=== PATIENT | male | born 1965 | race Caucasian/White ===

== ENCOUNTER 2018-04-02 05:16 | Inpatient (IN) | payer OTHER ==
[~2018-04-02] VITALS: Ht 188 cm; Wt 84.1 kg
--- NOTE | 2018-04-02 06:27 | ED AMS/SEIZURE/WEAK/DIZZY ---
See Addendum History of Present Illness General Chief Complaint: Seizure Stated Complaint: SEIZURE ACITIVTY AT HOME PER EMS Source: patient, old records, friend Exam Limitations: no limitations Vital Signs & Intake/Output Vital Signs & Intake/Output Vital Signs Date Time Temp Pulse Resp B/P B/P Pulse O2 O2 Flow FiO2 Mean Ox Delivery Rate 04/02 0652 97.8 95 16 104/65 97 Room Air 04/02 0526 98.7 115 16 117/75 94 Room Air Allergies Uncoded Allergies: MSG (UNKNOWN 03/29/13) Triage Note: PT BIBA FROM HOME, FRIEND WOKE UP OUT OF SLEEP AND NOTICED PT CONVULSING IN BED, LASTING APPROX 11 MIN PER EMS. PT ARRIVES AOX3 BUT DOES NOT REMEMBER SEIZURE LIKE ACTIIVY. PT STATES HE QUIT DRINKING COLD TURKEY 8 DAYS AGO. Triage Nurses Notes Reviewed? yes Onset: Just prior to arrival Duration: minute(s):, constant, gone now Timing: recent history Injury Environment: home Severity: severe No Modifying Factors: none HPI: 3.5 days prior to admission patient stopped drinking his normal 2 pints of alcohol daily. Prior to admission his family reports she was awakened by the patient having tonic-clonic movements of his upper and lower extremities unresponsive lasting up to 12 minutes with urine incontinence. Afterwards he was sleeping soundly and when he awoke he was confused. There has been no fever chills nausea vomiting diarrhea abdominal pain chest pain shortness breath headache dysuria rash bleeding noted Past History Travel History Traveled to [place] past 21 day No Medical History Any Pertinent Medical History? see below for history Neurological: NONE EENT: NONE Cardiovascular: hypertension Respiratory: NONE Gastrointestinal: NONE Hepatic: NONE Renal: NONE Musculoskeletal: NONE Psychiatric: alcohol dependence Endocrine: NONE Blood Disorders: NONE Cancer(s): NONE JANITOR SUPERVISOR/Reproductive: NONE Surgical History Surgical History: non-contributory Psychosocial History Who do you live with Spouse What is your primary language Nepali Tobacco Use: Current Daily Use Daily Tobacco Use Amount/Type: => 5 Cigarettes daily ETOH Use: denies use Illicit Drug Use: denies illicit drug use Family History Hx Contributory? No Review of Systems Review of Systems Constitutional: Reports: no symptoms. EENTM: Reports: no symptoms. Respiratory: Reports: no symptoms. Cardiovascular: Reports: no symptoms. GI: Reports: no symptoms. Genitourinary: Reports: no symptoms. Musculoskeletal: Reports: no symptoms. Skin: Reports: no symptoms. Neurological/Psychological: Reports: see HPI, tonic-clonic seizures. Hematologic/Endocrine: Reports: no symptoms. Immunologic/Allergic: Reports: no symptoms. All Other Systems: Reviewed and Negative Physical Exam Physical Exam General Appearance: well developed/nourished, alert, awake, anxious, mild distress Head: atraumatic, normal appearance Eyes: Bilateral: normal appearance, PERRL, EOMI. Ears, Nose, Throat: normal pharynx, normal ENT inspection, edentulous Neck: normal inspection, supple, full range of motion, no midline tenderness Respiratory: normal breath sounds, chest non-tender, no respiratory distress, quiet respiration, lungs clear Cardiovascular: regular rate/rhythm, normal peripheral pulses, norml femoral pulses equa Peripheral Pulses: 4+ carotid (R), 4+ carotid (L) Gastrointestinal: normal bowel sounds, soft, non-tender, no organomegaly Back: normal inspection, normal range of motion Extremities: normal range of motion, no ligament instability Neurologic/Psych: no motor/sensory deficits, awake, alert, oriented x 3, normal mood/affect, gas line servicer II-XII nml as tested Reflexes: 2+: bicep (R), bicep (L). Skin: intact, normal color, warm/dry Lymphatic: no anterior cervical melvi Core Measures ACS in differential dx? No CVA/TIA Diagnosis No Sepsis Present: No Sepsis Focused Exam Completed? No Progress Differential Diagnosis: alcohol intoxication, drug intoxication, electrolyte imbalance, hypoglycemia, seizure disorder, alcohol withdrawal Plan of Care: Orders Procedure Date/time Status CIWA 04/02 0704 Active URINE DRUG SCREEN FOR ER ONLY 04/02 626 Active MAGNESIUM 04/02 626 Complete ETHANOL 04/02 626 Complete COMPREHENSIVE METABOLIC PANEL 04/02 626 Complete CBC WITHOUT DIFFERENTIAL 04/02 626 Active CASE MANAGEMENT CONSULT 04/02 626 Active Current Medications Sig/José Start time Last Medication Dose Stop Time Status Admin Dextrose/Sodium 1,000 ML ONCE ONE 04/02 06 AC 04/02 Chloride 04/02 1309 0654 (D5-Normal Saline) Gabapentin 300 MG Q8 04/02 0624 UNVr 04/02 (Neurontin) 0654 Laboratory Tests 04/02/18 0550: Anion Gap 13, Estimated GFR > 60, BUN/Creatinine Ratio 16.7, Glucose 147 H, Calcium 9.5, Magnesium 1.3 L, Total Bilirubin 0.8, AST 187 H, ALT 181 H, Alkaline Phosphatase 78, Total Protein 6.5, Albumin 4.1, Globulin 2.4, Albumin/ Globulin Ratio 1.7, CBC w Diff Pending, WBC Pending, RBC Pending, Hgb Pending, Hct Pending, MCV Pending, MCH Pending, MCHC Pending, RDW Pending, Plt Count Pending, MPV Pending, Gran % Pending, Lymphocytes % Pending, Monocytes % Pending , Eosinophils % Pending, Basophils % Pending, Absolute Granulocytes Pending, Absolute Lymphocytes Pending, Absolute Monocytes Pending, Absolute Eosinophils Pending, Absolute Basophils Pending, Serum Alcohol < 10.0 Initial ED EKG: none Hand-Off Endorsed To: Hortencia SCHULER,Forrest Moran Endorsed Time: 0700 Pending: CT, consult (case mgmt), labs Departure Departure Time of Disposition: 0700 Disposition: STILL A PATIENT Condition: Stable Clinical Impression Primary Impression: Alcohol withdrawal seizure Referrals: Luis Daniel SCHULER,Richard Freitas (PCP/Family) Departure Forms: Customer Survey General Discharge Information
[2018-04-02 06:49] LABS: ABSOLUTE BASOPHIL COUNT 0 /CUMM (0.0-0.2); ABSOLUTE EOSINOPHIL COUNT 0.1 /CUMM (0.0-0.7); ABSOLUTE GRANULOCYTE CT 2.8 /CUMM (1.4-6.5); ABSOLUTE LYMPH COUNT 1.9 /CUMM (1.2-3.4); ABSOLUTE MONOCYTE COUNT 0.6 /CUMM (0.10-0.60); BASOPHIL % 0.5 % (0.0-2.0); EOSINOPHIL % 1.6 % (0-5); GRANULOCYTE % 52.2 % (42.2-75.2); HEMATOCRIT 39.7 % (42-52); MEAN CORPUSCULAR HGB 34.7 PG (27.0-31.0); MEAN CORPUSCULAR HGB CONC 33.9 G/DL (33.0-37.0); MEAN CORPUSCULAR VOLUME 102.6 FL (80.0-94.0); MEAN PLATELET VOLUME 8.9 FL (7.4-10.4); PLATELET COUNT 153 /CUMM (130-400); RBC DISTRIBUTION WIDTH 15.5 % (11.5-14.5); RED BLOOD CELL CT 3.87 /CUMM (4.70-6.10)
--- NOTE | 2018-04-02 06:58 | CT SCAN REPORT ---
EXAMINATION: CT HEAD WITHOUT CONTRAST CLINICAL INFORMATION: Seizure. Alcohol withdrawal. COMPARISON: June 03, 2008. TECHNIQUE: Contiguous axial images of the brain were obtained without IV contrast. DLP: 635 mGy-cm. FINDINGS: There are no pathologic extra-axial fluid collections. The lateral, third, fourth ventricles are mildly prominent, though concordant with the appearance of the sulci. There is no evidence for acute intraparenchymal hemorrhage or infarct. There is neither mass nor mass effect. There is no shift of midline structures. The paranasal sinuses and mastoid air cells are clear. There are no osseous lesions. IMPRESSION: No evidence for acute intracranial injury. Mild age discordant prominence to the lateral ventricles. This is nonspecific, though could be related to early atrophy related to the reported history of alcohol abuse.
[2018-04-02 07:08] LABS: WHITE BLOOD CELL COUNT 5.3 /CUMM (4.8-10.8)
[2018-04-02 07:30] VITALS: BP 110/70
[2018-04-02 09:46] VITALS: BP 106/74
[2018-04-02 11:29] VITALS: BP 110/73
--- NOTE | 2018-04-02 12:23 | History & Physical ---
Ashley Jennings MD 04/02/18 1222: General Information and HPI MD Statement: I have seen and personally examined KAYLIN GREGORY and documented this H&P. The patient is a 52 year old M who presented with a patient stated chief complaint of [seizures]. Source of Information: patient, family, old records, EMS Exam Limitations: no limitations History of Present Illness: Patient is a 52-year-old actively smoking male with past medical history significant for alcohol abuse, remote hypertension presented to [facility] after found to be having seizures early in the morning. Patient lives alone in [place] and came to stay with his for a few days. He has been with her since and remained off alcohol. He started experiencing shaking episodes early in the morning witnessed by his . He continued to have seizure episode for around 12 minutes, associated with urinary incontinence. He is confused after the event for about an hour. He had another episode for around few minutes and then fell sleep. She called 911 and by the time EMS arrived patient is very confused, able to answer questions but very inappropriate. He was brought to the ER subsequently. Patient had significant history of alcohol consumption, he was off alcohol for around 2 and half years and started drinking around an year ago. He is actually scheduled to go for rehabilitation for 8-10 months which is free in [place] ( [employer] in [place]) for which he is traveling on April 11. Smokes 1.5 packs every day. He used to be hypertensive and he had a history of hypertension and used to be on labetalol however stopped after having an episode of hypotension and remained normotensive. 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 Home Who Do You Live With? self Services at Home: None Smoking Status: Current Everyday Smoker ETOH Use: denies use Illicit Drug Use: denies illicit drug use Review of Systems Review of Systems Constitutional: Reports: see HPI. Exam & Diagnostic Data Last 24 Hrs of Vital Signs/I&O Vital Signs Date Time Temp Pulse Resp B/P B/P Pulse O2 O2 Flow FiO2 Mean Ox Delivery Rate 04/02 1129 97.6 86 16 110/73 04/02 1128 97.6 86 16 110/73 95 Room Air 04/02 0951 98.2 87 20 106/74 95 Room Air 04/02 0946 98.2 87 20 106/74 04/02 0730 98.0 86 20 110/70 04/02 0730 98.0 86 20 110/70 95 Room Air 04/02 0652 97.8 95 16 104/65 97 Room Air 04/02 0526 98.7 115 16 117/75 94 Room Air Intake & Output 04/02 1600 04/02 0800 04/02 0000 Intake Total Output Total 300 Balance -300 Output, Urine 300 Patient 81.647 kg Weight Weight Reported by Patient Measurement Method Physical Exam General Appearance Alert, Oriented X3, Cooperative, No Acute Distress Skin No Rashes, No Breakdown Skin Temp/Moisture Exam: Warm/Dry HEENT Atraumatic, PERRLA, EOMI, no teeth Neck Supple, No JVD Cardiovascular Regular Rate, Normal S1, Normal S2 Lungs Clear to Auscultation, Normal Air Movement Abdomen Normal Bowel Sounds, Soft, No Tenderness, hepatomegaly presente - nontender to palpation Neurological Normal Speech, Strength at 5/5 X4 Ext Extremities No Clubbing, No Cyanosis, No Edema Vascular Normal Pulses Last 24 Hrs of Labs/New: Laboratory Tests 04/02/18 1105: Urine Opiates Screen < 100, Methadone Screen < 40, Barbiturate Screen < 60, Ur Phencyclidine Scrn < 6.00, Amphetamines Screen < 100, U Benzodiazepines Scrn < 85, Urine Cocaine Screen < 50, Urine Cannabis Screen < 5.00, Urine Osmolality 432, Ur Random Creatinine 228.1, Ur Random Sodium 38, Ur Random Potassium 35.9, Fraction Sodium Excret 0.1 04/02/18 0550: Anion Gap 13, Estimated GFR > 60, BUN/Creatinine Ratio 16.7, Glucose 147 H, Serum Osmolality 287, Calcium 9.5, Magnesium 1.3 L, Total Bilirubin 0.8, AST 187 H, ALT 181 H, Alkaline Phosphatase 78, Total Protein 6.5, Albumin 4.1, Globulin 2.4, Albumin/Globulin Ratio 1.7, CBC w Diff NO MAN DIFF REQ, RBC 3.87 L, MCV 102.6 H, MCH 34.7 H, MCHC 33.9, RDW 15.5 H, MPV 8.9, Gran % 52.2, Lymphocytes % 35.1, Monocytes % 10.6 H, Eosinophils % 1.6, Basophils % 0.5, Absolute Granulocytes 2.8, Absolute Lymphocytes 1.9, Absolute Monocytes 0.6, Absolute Eosinophils 0.1, Absolute Basophils 0, Serum Alcohol < 10.0 Assessment/Plan Assessment: Patient is a 52-year-old male with significant history of alcohol consumption has been on and off, restarted around an yr ago and consuming around 2 pints of vodka daily, active smoking presented with seizures are being off alcohol from past . Seizure was wittnessed by , associated with urinary incontinence and postictal confusion. VS at presentation are afebrile, HR 115, saturating well on RA. By the time of my interview he is alert, oriented X3. Physical exam significant for hepatomegaly, no teeth, wheezing throughtout the lung loaiza. Labs did show leukopenia, throbocytopenia, low Na 133, K 3.4, AST/ ALT 187/181, serum alcohol <10. Evaluation Likely alcohol related. I am concerned about the extent of liver injury given hepatomegaly. Given significant wheezing - rule out pneumonitis with a CXR. Plan Admit to general medicine floor Alcohol withdrawl seizures * CIWA protocol * ativan per CIWA * banana bag * Seizure precautions. * Patient scheduled for a rehab facility and wants to take care of him prior to placement. * If continues to have seizures we will consult neurology Hepatomegaly with abnormal LFTs likely related to alcohol. * trend LFT's * RUQ ultrasound in am * NPO for ultrasound Thrombocytopenia Platelets of 154 * likely alcohol related * Trend for now Pneumonitis wheezing present. smokes 1.5 pack per day. * cxr * TRC DVT prophylaxis SC heparin Code status Full Code As Ranked By This Provider Problem List: 1. Alcohol withdrawal seizure Core Measures/Misc (04/03) Acute Coronary Syndrome ACS Diagnosis: No Congestive Heart Failure Congestive Heart Failure Diagnosis No Cerebrovascular Accident CVA/TIA Diagnosis: No VTE (View Protocol) VTE Risk Factors Acute Medical Illness No Mechanical VTE Prophylaxis d/t N/A MechProphylax Ordered No VTE Pharm Prophylaxis d/t NA PharmProphylax ordered Sepsis (View protocol) Sepsis Present: No If YES complete Sepsis Event Note If YES complete Sepsis Event Note Resident Review Statement Resident Statement: examined this patient, discussed with supervisor international reservations, agreed with supervisor international reservations, discussed with family, reviewed EMR data (avail), discussed with nursing , discussed with case mgmt, reviewed images, amended to note Other Findings: as above Bull Montague 04/02/18 1420: Core Measures/Misc (04/03) Sepsis (View protocol) If YES complete Sepsis Event Note If YES complete Sepsis Event Note Attending MD Review Statement Attending Statement Attending MD Statement: examined this patient, discuss w/resident/PA/POWER WOOD SAWYER, agreed w/resident/PA/POWER WOOD SAWYER, discussed with family, reviewed EMR data (avail), discussed with nursing, discussed with case mgmt, reviewed images, amended to note Attending Assessment/Plan: 52 o/m admitted here for aclohol withdrawal seizures. He will be started on CIWA protocol with ativan taper. Also give ativan prn for seozure control. If not improves then consider neurology consult. Pateint mild hypokalemia which needs to be replaced and recheck. Add magnesium levels. Thiamine/folic acid. SW consult. GI/DVT prophylaxis full code
[2018-04-02 13:31] VITALS: BP 120/93
[2018-04-02 14:22] VITALS: BP 116/74
--- NOTE | 2018-04-02 22:38 | RADIOLOGY REPORT ---
EXAMINATION: XR CHEST CLINICAL INFORMATION: Wheezing. COMPARISON: 12/25/2007 TECHNIQUE: 2 views of the chest were obtained. FINDINGS: No significant abnormality is noted involving the heart, lungs, mediastinum, bony thorax or soft tissues. Mild degenerative changes present in the shoulders. IMPRESSION: No acute intrathoracic disease.
[2018-04-02 22:53] VITALS: BP 115/72
[2018-04-03] VITALS (10 sets, daily range): BP systolic 112–124; BP diastolic 51–88
--- NOTE | 2018-04-03 07:26 | PN- Housestaff ---
Linnette Sexton 04/03/18 0726: Subjective Follow-up For: Alcohol detoxification Subjective: Patient was seen and examined at bedside. The patient has no complaints at present. CIWA was 0 this morning. Patient denies fever, headache, tremors, confusion. Review of Systems Constitutional: Reports: see HPI. Objective Last 24 Hrs of Vital Signs/I&O Vital Signs Date Time Temp Pulse Resp B/P B/P Pulse O2 O2 Flow FiO2 Mean Ox Delivery Rate 04/03 1430 98.0 107 20 115/88 97 Room Air 04/03 1400 98.0 107 20 115/88 04/03 1200 98.1 81 18 112/79 04/03 1109 95 Room Air 04/03 1000 98.1 81 20 112/79 04/03 0800 98.1 81 20 112/79 04/03 0703 98.1 81 20 112/79 95 Room Air 04/03 0000 Room Air 04/02 2253 97.9 89 20 115/72 93 Room Air 04/02 2106 94 Room Air Room Air 04/02 2029 Room Air Room Air Intake & Output 04/03 1600 04/03 0800 04/03 0000 Intake Total 400 500 Output Total Balance 400 500 Intake, IV 500 Intake, Oral 400 Physical Exam General Appearance: Alert, Oriented X3, Cooperative, No Acute Distress Cardiovascular: Regular Rate, Normal S1, Normal S2, No Murmurs Lungs: Clear to Auscultation, Normal Air Movement Abdomen: Normal Bowel Sounds, Soft, No Tenderness Extremities: No Edema, Normal Pulses Assessment/Plan Assessment: Patient is a 52-year-old male with significant history of alcohol consumption has been on and off, restarted around an yr ago and consuming around 2 pints of vodka daily, active smoking presented with seizures are being off alcohol from past . Seizure was wittnessed by , associated with urinary incontinence and postictal confusion. Alcohol withdrawl seizures -CIWA protocol -ativan per CIWA -banana bag -Seizure precautions. -Patient scheduled for a rehab facility and ex wants to take care of him prior to placement. -If continues to have seizures we will consult neurology Hepatomegaly with abnormal LFTs -likely related to alcohol. -trend LFT's -RUQ ultrasound positive for hepatomegaly with hepatic steatosis Thrombocytopenia -Platelets of 154 -would trend Pneumonitis -wheezing present. smokes 1.5 pack per day. -cxr normal -TRC DVT prophylaxis SC heparin Code status Full Code Problem List: 1. Alcohol withdrawal seizure 2. Transaminitis Pain Ratin Pain Location: none Pain Goal: Remain pain free Pain Plan: none Tomorrow's Labs & Rationales: cbc, bep and hepatic function tests Bull Montague 04/03/18 1114: Attending MD Review Statement Attending Statement Attending MD Statement: examined this patient, discuss w/resident/PA/HAND III CUTTER, agreed w/resident/PA/HAND III CUTTER, discussed with family, reviewed EMR data (avail), discussed with nursing, discussed with case mgmt, reviewed images, amended to note Attending Assessment/Plan: 52 o/m admitted here for aclohol withdrawal seizures. Continue CIWA protocol with ativan taper. Also give ativan prn for seozure control. If not improves then consider neurology consult.Thiamine/folic acid. Transaminitis 2/2 alcohol abuse. Send hepatitis profile and RUQ USG. Has arrangements made for his alcohol detox as outpatient. refused to see IOP here. GI/DVT prophylaxis full code
[2018-04-03 08:52] LABS: PT 10.1 SEC (9.4-12.5)
--- NOTE | 2018-04-03 13:43 | ULTRASOUND REPORT ---
EXAMINATION: US ABDOMEN LIMITED CLINICAL INFORMATION: Active alcohol consumption, hepatomegaly, transaminitis.. COMPARISON: None TECHNIQUE: Real-time imaging of the right upper quadrant abdominal viscera. FINDINGS: PANCREAS: The visualized portions of the pancreas are unremarkable. LIVER: The liver measures 21.5 cm in maximal dimension. The liver demonstrates normal contour and echogenicity. No focal lesion or intrahepatic biliary duct dilatation. GALLBLADDER: The gallbladder is physiologically distended without evidence of stones, sludge, wall thickening or pericholecystic fluid. Small, 2 mm polyp. COMMON BILE DUCT: Normal in caliber measuring 0.5 cm in diameter. RIGHT KIDNEY: No hydronephrosis. No renal calculi or focal parenchymal lesions. The kidney measures 11.6 cm in maximum dimension. FREE FLUID: None. IMPRESSION: The liver is enlarged with diffusely increased echogenicity which may reflect underlying hepatic steatosis versus hepatocellular disease. No focal hepatic lesions. 2 mm gallbladder polyp.
[2018-04-04] VITALS (14 sets, daily range): BP systolic 120–140; BP diastolic 70–102
--- NOTE | 2018-04-04 07:28 | PN- Housestaff ---
See Addendum Subjective Follow-up For: Alcohol detoxification Transaminitis Subjective: Patient was seen and examined at bedside. He has no complaints. His CIWA score has been zero. He is currently on Ativan taper. Review of Systems Constitutional: Reports: see HPI. Objective Last 24 Hrs of Vital Signs/I&O Vital Signs Date Time Temp Pulse Resp B/P B/P Pulse O2 O2 Flow FiO2 Mean Ox Delivery Rate 04/04 1000 98.6 96 18 120/70 04/04 0800 98.6 96 18 120/70 04/04 0614 98.6 96 19 120/70 94 / 0138 97.6 87 17 132/87 93 04/03 2204 98.1 100 17 124/76 97 Room Air 04/03 1843 98.1 100 20 119/51 96 Room Air 04/03 1840 94 Room Air 04/03 1800 98.0 107 20 115/88 04/03 1600 Room Air 04/03 1600 98.0 107 20 115/88 04/03 1556 92 04/03 1430 98.0 107 20 115/88 97 Room Air 04/03 1400 98.0 107 20 115/88 04/03 1200 98.1 81 18 112/79 04/03 1109 95 Room Air Intake & Output 04/04 1600 04/04 0800 04/04 0000 Intake Total 510 210 Output Total Balance 510 210 Intake, IV 10 10 Intake, Oral 500 200 Physical Exam General Appearance: Alert, Oriented X3, Cooperative, No Acute Distress Neck: Supple Cardiovascular: Regular Rate, Normal S1, Normal S2, No Murmurs Lungs: Clear to Auscultation Abdomen: Normal Bowel Sounds, Soft, Hepatomegaly Extremities: No Edema, Normal Pulses Assessment/Plan Assessment: Patient is a 52-year-old male with significant history of alcohol consumption has been on and off, restarted around an yr ago and consuming around 2 pints of vodka daily, active smoking is admitted to the [facility] service after he had a seizure presumably from alcohol withdrawal. His last drink was Tuesday. Seizure was wittnessed by , associated with urinary incontinence and postictal confusion. Vitals are stable. Labs are positive for mild transaminitis. Liver ultrasound revealed hepatomegaly with hepatic steatosis. Problems: 1. Alcohol withdrawal 2. Hepatomegaly with Transaminitis 3. Thrombocytopenia 4. URI 1. Alcohol withdrawal seizures -CIWA protocol. CIWA score has been consistently zero. -Ativan per CIWA -Seizure precautions. -Patient scheduled for a rehab facility and ex wants to take care of him prior to placement. 2. Hepatomegaly with Transaminitis -Likely secondary to alcohol -Trend LFTs -RUQ ultrasound positive for hepatomegaly with hepatic steatosis -Patient would follow GI outpatient 3. Thrombocytopenia -Platelets of 154 -would trend 4. URI -wheezing present. smokes 1.5 pack per day. -cxr normal -TRC DVT prophylaxis SC heparin Code status Full Code Problem List: 1. Alcohol withdrawal seizure 2. Transaminitis Pain Ratin Pain Location: none Pain Goal: Remain pain free Pain Plan: none Tomorrow's Labs & Rationales: cbc
[2018-04-04 10:49] LABS: ABSOLUTE BASOPHIL COUNT 0 /CUMM (0.0-0.2); ABSOLUTE EOSINOPHIL COUNT 0.1 /CUMM (0.0-0.7); ABSOLUTE GRANULOCYTE CT 3.7 /CUMM (1.4-6.5); ABSOLUTE LYMPH COUNT 2.1 /CUMM (1.2-3.4); ABSOLUTE MONOCYTE COUNT 0.6 /CUMM (0.10-0.60); BASOPHIL % 0.5 % (0.0-2.0); EOSINOPHIL % 2.2 % (0-5); GRANULOCYTE % 56.3 % (42.2-75.2); HEMATOCRIT 37.5 % (42-52); MEAN CORPUSCULAR HGB 35.2 PG (27.0-31.0); MEAN CORPUSCULAR HGB CONC 33.5 G/DL (33.0-37.0); MEAN PLATELET VOLUME 8.4 FL (7.4-10.4); PLATELET COUNT 182 /CUMM (130-400); RBC DISTRIBUTION WIDTH 16.9 % (11.5-14.5); RED BLOOD CELL CT 3.57 /CUMM (4.70-6.10); WHITE BLOOD CELL COUNT 6.6 /CUMM (4.8-10.8)
--- NOTE | 2018-04-04 16:23 | Patient Discharge Instructions ---
Discharge Instructions General Discharge Information You were seen/treated for: Alcohol withdrawal seizures Special Instructions: Please inform your PCP about your admission to [facility] Please start taking health supplements according to instructions given Acute Coronary Syndrome Inclusion Criteria At DC or during hospital stay patient has or had the following: ACS DIAGNOSIS No Discharge Core Measures Meds if any: Prescribed or Continued at Discharge Meds if any: NOT Prescribed or Continued at Discharge Congestive Heart Failure Inclusion Criteria At DC or during hospital stay patient has or had the following: CHF DIAGNOSIS No Discharge Core Measures Meds if any: Prescribed or Continued at Discharge Meds if any: NOT Prescribed or Continued at Discharge Cerebrovascular accident Inclusion Criteria At DC or during hospital stay patient has or had the following: CVA/TIA Diagnosis No Discharge Core Measures Meds if any: Prescribed or Continued at Discharge Meds if any: NOT Prescribed or Continued at Discharge Venous thromboembolism Inclusion Criteria VTE Diagnosis No VTE Type NONE VTE Confirmed by (Test) NONE Discharge Core Measures - Per Current guidelines, there needs to be overlap - treatment for the first 5 days of Warfarin therapy. - If discharged on Warfarin prior to 5 days of - overlap therapy, the patient will need to be - assessed for post discharge needs including - *Post discharge parental anticoagulation - *Warfarin and/or parental anticoagulation education - *Follow up date to check INR post discharge At least 5 days overlap therapy as Inpatient No Meds if any: Prescribed or Continued at Discharge Note: Overlap Therapy is Warfarin and Anticoagulant Meds if any: NOT Prescribed or Continued at Discharge
[2018-04-04] MEDS ORDERED: FOLIC ACID1 M1 PO (16:25)
[2018-04-04] MEDS ORDERED: DAILY MULTIPLE1 EACH PO (16:25)
[2018-04-05 06:59] VITALS: BP 160/90
--- NOTE | 2018-04-05 07:26 | PN- Housestaff ---
Linnette Sexton 04/05/18 0726: Subjective Follow-up For: Alcohol detoxification Subjective: Patient was seen and examined at bedside. He has no new complaints. His CIWA was zero in the morning. Patient would be discharged home later today. He has been accepted to a rehab facility in [place] for alcohol rehabilitation program. Review of Systems Constitutional: Reports: see HPI. Objective Last 24 Hrs of Vital Signs/I&O Vital Signs Date Time Temp Pulse Resp B/P B/P Pulse O2 O2 Flow FiO2 Mean Ox Delivery Rate 04/05 0934 97 Room Air 04/05 0659 97.5 70 20 160/90 96 04/05 0000 96 Room Air 04/04 2207 83 04/04 2202 99.1 102 20 122/94 97 Room Air 04/04 2200 99.1 83 20 122/94 04/04 2000 97.8 88 20 136/92 04/04 1900 136/92 04/04 1832 96 Room Air 04/04 1828 97.8 88 20 140/102 98 Room Air 04/04 1800 97.8 88 20 140/102 04/04 1600 Room Air 04/04 1600 98.9 81 18 124/92 04/04 1442 98.9 81 18 124/92 97 Room Air 04/04 1400 98.6 96 18 120/70 04/04 1245 94 Room Air 04/04 1200 98.6 96 18 120/70 Intake & Output 04/05 1600 04/05 0800 04/05 0000 Intake Total 480 490 Output Total Balance 480 490 Intake, IV 0 10 Intake, Oral 480 480 Number 0 0 Bowel Movements Physical Exam General Appearance: Alert, Oriented X3, Cooperative, No Acute Distress Neck: Supple Cardiovascular: Regular Rate, Normal S1, Normal S2, No Murmurs Lungs: Clear to Auscultation Abdomen: Normal Bowel Sounds, Soft, No Tenderness Extremities: No Edema, Normal Pulses Assessment/Plan Assessment: Patient is a 52-year-old male with significant history of alcohol consumption has been on and off, restarted around an yr ago and consuming around 2 pints of vodka daily, active smoking is admitted to the [facility] service after he had a seizure presumably from alcohol withdrawal. His last drink was Tuesday. Seizure was wittnessed by , associated with urinary incontinence and postictal confusion. Vitals are stable. Labs are positive for mild transaminitis. Liver ultrasound revealed hepatomegaly with hepatic steatosis. Problems: 1. Alcohol withdrawal 2. Hepatomegaly with Transaminitis 3. Thrombocytopenia 4. URI 1. Alcohol withdrawal seizures -CIWA protocol. CIWA score has been consistently zero. -Ativan per CIWA -Seizure precautions. -Patient scheduled for a rehab facility and ex wants to take care of him prior to placement. 2. Hepatomegaly with Transaminitis -Likely secondary to alcohol -Trend LFTs -RUQ ultrasound positive for hepatomegaly with hepatic steatosis -Patient would follow GI outpatient 3. Thrombocytopenia -Platelets of 154 -would trend 4. URI -wheezing present. smokes 1.5 pack per day. -cxr normal -TRC DVT prophylaxis SC heparin Code status Full Code Problem List: 1. Transaminitis 2. Alcohol withdrawal seizure Pain Ratin Pain Location: none Pain Goal: Remain pain free Pain Plan: none Tomorrow's Labs & Rationales: none ClariBull schilling 04/05/18 1124: Attending MD Review Statement Attending Statement Attending MD Statement: examined this patient, discuss w/resident/PA/CITY DIRECTOR, agreed w/resident/PA/CITY DIRECTOR, discussed with family, reviewed EMR data (avail), discussed with nursing, discussed with case mgmt, reviewed images, amended to note Attending Assessment/Plan: 52 o/m admitted here for alcohol withdrawal seizures. CIWA remains low with minimal requirement of ativan. Transaminitis 2/2 alcohol abuse. f/u hepatitis profile negative and RUQ USG w/ hepatitis picture. Has arrangements made for his alcohol detox as outpatient. refused to see IOP here. GI/DVT prophylaxis full code anticipate discharge soon. Follow up with PCP in 1-2 weeks of discharge.
--- NOTE | 2018-04-05 07:28 | Discharge Summary ---
Visit Information Visit Dates Admission Date: 04/02/18 Discharge Date: 04/05/18 Hospital Course Course Attending Physician: Bull Montague MD Primary Care Physician: Richard Cary MD Hospital Course: ,who has a significant history of alcohol consumption regularly drinking 2 pints of Vodka everyday was admitted to [facility] at [facility] after he had a seizure which was presumed to be from alcohol withdrawal, given his last drink was 4 days before presentation. The seizure was witnessed by his . The patient apparently had urinary incontinence accompanying the seizure and the patient had post ictal confusion following the seizure. Patient was afebrile at presentation with a HR of 115. He was saturating well on room air. The patient was alert and oriented to time, place and person at the time of interview. Physical exam was significant for hepatomegaly. The patient did had scattered wheezing over bilateral lung loaiza. Labs: Hgb: 13.4, WBC: 5.3, Platelets: 153, MCV: 102.6, Na:133, K:3.4, M.3, Glucose: 147, Total bilirubin: 0.5, AST:187 ALT: 181, Urine toxicology screen was negative with Blood alcohol levels of <10. INR:0.93. Hepatitis panel was ordered and came back negative. Abdominal Ultrasound IMPRESSION: The liver is enlarged with diffusely increased echogenicity which may reflect underlying hepatic steatosis versus hepatocellular disease. No focal hepatic lesions. 2 mm gallbladder polyp. Head CT IMPRESSION: No evidence for acute intracranial injury. Mild age discordant prominence to the lateral ventricles. This is nonspecific, though could be related to early atrophy related to the reported history of alcohol abuse. The patient was admitted to [facility] service for evaluation and treatment of the following problems: 1. Alcohol withdrawal seizures -Head CT did not show evidence of any acute intracranial injury -Patient was placed on the CIWA protocol. CIWA score was consistently zero. -Ativan taper was initiated and completed for the patient. -The patient did not experience significant withdrawal symptoms during his hospital stay. -Seizure precautions were put in place. The patient did not experience any more seizures during his hospital stay. -Patient reported that he had been accepted at a rehabilitation centre at [place]. He is supposed to check into the rehab after his discharge. -Patient was given supplementation with Thiamine, Multivitamins and Folic acid at discharge 2. Hepatomegaly with Transaminitis -The patient did display transaminitis. He has hepatomegaly on physical exam which was confirmed by ultrasound. His INR, serum albumin and platelet counts were within normal limits. -Patient was given an outpatient to Gastroenterology to follow up for the same. 3. URI -Scattered bilateral wheezing was present on physical exam at admission. -Chest X-ray was unremarkable/ -The patient was placed on TRC whilst in the hospital -Wheezing had resolved at the time of discharge 4. Smoking -The patient endorsed of smoking 1.5 packs of cigarettes a day -He was given Nicotine replacement therapy with Nicotine patch 14 mg 5. Gastritis -Patient complained of buring abdominal pain which were relieved with Protonix -He was given Omeprazole 20mg at discharge DVT prophylaxis SC heparin Allergies: Uncoded Allergies: MSG (UNKNOWN 03/29/13) Disposition Summary Disposition Principal Diagnosis: Alcohol Withdrawal Seizures Additional Diagnosis: Transaminitis with Hepatomegaly Nicotine Dependence Gastritis URI Discharge Disposition: home or self care Discharge Instructions General Discharge Information Code Status: Full Code Patient's Diet: Regular diet Patient's Activity: As tolerated Follow-Up Instructions/Appts: The patient would follow up with Gastroenterology for abnormal liver function tests and hepatomegaly. Medications at Discharge Discharge Medications: Start taking the following new medications: Folic Acid (Folic Acid) 1 MG TABLET 1 Tablet ORAL DAILY Qty = 30 No Refills Instructions: ., Comments: NOT GIVEN IN HOSPITAL Multivitamin (Daily Multiple Vitamin) 1 EACH TABLET 1 Tablet ORAL DAILY Qty = 30 No Refills Instructions: .. Comments: NOT GIVEN IN HOSPITAL Omeprazole (Omeprazole) 20 MG CAPSULE.DR 1 Capsule ORAL DAILY Qty = 30 No Refills Instructions: . Comments: NOT GIVEN IN HOSPITAL Thiamine HCl (Thiamine HCl) 100 MG TABLET 1 Tablet ORAL DAILY Qty = 30 No Refills Instructions: .. Comments: NOT GIVEN IN HOSPITAL Copies To: Luis Daniel SCHULER,Richard Freitas
[2018-04-05] MEDS ORDERED: THIAMINE HCL100 M1 PO ×3 (07:37→10:06)
[2018-04-05] MEDS ORDERED: FOLIC ACID1 M1 PO ×2 (08:25→10:06)
[2018-04-05] MEDS ORDERED: DAILY MULTIPLE1 EACH PO ×2 (08:25→10:06)
[2018-04-05] MEDS ORDERED: OMEPRAZOLE20 M2 PO ×2 (10:03→10:06)
== END 2018-04-05 11:15 | DRG 775 ==
LOC: ERH 05:16 → ERHI 12:20 → 2NB 12:20 → ENRESERV 12:51 → ENTRNSPT 14:08 → EDTRNSPTSTS 14:14 → 2NB 14:21 → CMPTRNSPT 14:40 → ENPENDDIS 04-05 09:50 → 2NB 04-05 11:15
PROVIDERS: Emergency Medicine; Internal Medicine
DX: F10.239 Alcohol dependence with withdrawal, unspecified (principal); Y90.0 Blood alcohol level of less than 20 mg/100 ml; R56.9 Unspecified convulsions; K70.30 Alcoholic cirrhosis of liver without ascites; D69.6 Thrombocytopenia, unspecified; F17.210 Nicotine dependence, cigarettes, uncomplicated; E87.6 Hypokalemia; R06.2 Wheezing; R74.0 Nonspecific elevation of levels of transaminase and lactic acid dehydrogenase [LDH]; R16.0 Hepatomegaly, not elsewhere classified
CPT/HCPCS: 2NBP; 84133; 84300; 36415; 36592; 71046; 80307; 82436; 82570; G0480; J1644; J3490; J7060